=== PATIENT | female | born 1960 | race Caucasian/White ===

== ENCOUNTER 2016-12-04 14:57 | Day surgery (SDC) | payer OTHER ==
[~2016-12-04 14:57] MED LIST: GLIPIZIDE5 MG PO; GLUCOSAMINE-CH1 EA16 PO; METFORMIN HCL500 MG PO; ONGLYZA5 MG PO; QVAR7.3 GM IH; ULTRAM50 MG PO; VENTOLIN HFA18 GM IH; VITAMIN C1000 MG PO; VITAMIN D-1000 UNIT2 PO
[2016-12-04] MEDS ORDERED: TRADJENTA5 M1 PO (16:46)
[2016-12-04] MEDS ORDERED: VITAMIN D35000 UNI3 PO (16:46)
[2016-12-04 16:47] LABS: BASO % 0.1 % (0-2); HGB-HEMOGLOBIN 14.6 gm/dl (12.0-15.5); IMMATURE GRANULOCYTES ABSOLUTE 0.09 tho/cmm (0-0.03); IMMATURE GRANULOCYTES PERCENT 0.5 % (0-0.3); LYMPH % 7.3 % (20-45); LYMPH ABSOLUTE COUNT 1.4 tho/cmm (0.8-4.5); MCH (MEAN CORPUSCULAR HGB) 31.1 pg (28.0-32.0); MCHC MEAN CORPUSCULAR HGB CONC 34.8 % (32.0-36.0); MCV (MEAN CELL VOLUME) 89.4 fl (82.0-96.0); MEAN PLATELET VOLUME 9.7 cmc (9.4-12.4); MONO % 11.5 % (0-12); MONOCYTE ABSOLUTE COUNT 2.3 tho/cmm (0.0-1.2); NEUTROPHIL ABSOLUTE COUNT 15.8 tho/cmm (1.6-8.0); NEUTROPHIL-AUTOMATED 15.8 tho/cmm (1.6-8.0); NEUTROPHILS % 80.6 % (40-80); PLATELET COUNT 171 tho/cmm (150-450); RED CELL DISTRIBUTION WIDTH 13.2 % (12.4-16.4); WHITE BLOOD COUNT 19.6 tho/cmm (4.0-10.0)
[2016-12-04] MEDS ORDERED: FISH OIL 1,4001 EAC1 PO (16:47)
[2016-12-04] MEDS ORDERED: TRESIBA FL200 UNIT/1 SC (16:47)
[2016-12-04] MEDS ORDERED: VIIBRYD20 M1 PO (16:47)
[2016-12-04] MEDS ORDERED: CENTRUM SILVER1 EAC6 PO (16:47)
[2016-12-04] MEDS ORDERED: ROSUVASTATIN CA20 MG PO (16:48)
[2016-12-04] MEDS ORDERED: VENTOLIN HFA18 G2 INH (16:48)
[2016-12-04] MEDS ORDERED: QVAR8.7 G1 INH (16:48)
[2016-12-04 17:04] LABS: ALB/GLOB RATIO 0.6 (0.8-2.0); ALBUMIN 3.1 g/dl (3.5-5.0); ALKALINE PHOSPHATASE 72 U/L (33-138); ALT/SGPT 25 U/L (12-78); BILIRUBIN,TOTAL 0.7 mg/dl (0-1.5); BLOOD UREA NITROGEN 14 mg/dl (6-24); CALCIUM 8.6 mg/dl (8.5-10.5); CARBON DIOXIDE-VENOUS 25 mmol/L (22-32); CHLORIDE 98 mmol/l (96-110); CREATININE 0.68 mg/dl (0.50-1.10); GLUCOSE 207 mg/dL (70-110); LIPASE 68 U/L (73-393); SODIUM 133 mmol/L (135-145); eGFR VALUE FOR BLACK >90 mL/Min
[2016-12-04 17:05] LABS: ANION GAP 14 mmol/L (0-20); AST/SGOT 19 U/L (10-40)
[2016-12-04 18:47] LABS: URINE BILIRUBIN NEGATIVE (NEG); URINE BLOOD MODERATE (NEG); URINE GLUCOSE (UA) MODERATE (NEG); URINE KETONE MODERATE (NEG); URINE LEUKOCYTE ESTERASE POSITIVE (NEG); URINE NITRITE NEGATIVE (NEG); URINE PROTEIN MODERATE (NEG)
[2016-12-04 18:51] LABS: URINE APPEARANCE HAZY; URINE COLOR DARK YELLOW
[2016-12-04 18:53] LABS: URINE AMORPHOUS 1+; URINE BACTERIA 1+; URINE MUCUS 1+
[2016-12-04 18:54] LABS: URINE EPITHELIAL CELLS 0-3 /[HPF] (0-10); URINE WBC 15-30 /[HPF] (0-5)
[2016-12-05 06:26] LABS: BASO % 0.1 % (0-2); HCT-HEMATOCRIT 40.6 % (34.0-49.0); HGB-HEMOGLOBIN 13.6 gm/dl (12.0-15.5); IMMATURE GRANULOCYTES ABSOLUTE 0.04 tho/cmm (0-0.03); IMMATURE GRANULOCYTES PERCENT 0.2 % (0-0.3); LYMPH % 6.7 % (20-45); LYMPH ABSOLUTE COUNT 1.1 tho/cmm (0.8-4.5); MCH (MEAN CORPUSCULAR HGB) 30.3 pg (28.0-32.0); MCHC MEAN CORPUSCULAR HGB CONC 33.5 % (32.0-36.0); MCV (MEAN CELL VOLUME) 90.4 fl (82.0-96.0); MEAN PLATELET VOLUME 9.7 cmc (9.4-12.4); MONO % 4.1 % (0-12); MONOCYTE ABSOLUTE COUNT 0.7 tho/cmm (0.0-1.2); NEUTROPHIL ABSOLUTE COUNT 14.4 tho/cmm (1.6-8.0); NEUTROPHIL-AUTOMATED 14.4 tho/cmm (1.6-8.0); NEUTROPHILS % 88.9 % (40-80); PLATELET COUNT 163 tho/cmm (150-450); RED BLOOD COUNT 4.49 mil/cmm (4.00-5.20); RED CELL DISTRIBUTION WIDTH 13.2 % (12.4-16.4); WHITE BLOOD COUNT 16.2 tho/cmm (4.0-10.0)
[2016-12-05 06:30] LABS: ANION GAP 11 mmol/L (0-20); BLOOD UREA NITROGEN 14 mg/dl (6-24); CALCIUM 7.7 mg/dl (8.5-10.5); CARBON DIOXIDE-VENOUS 26 mmol/L (22-32); CHLORIDE 106 mmol/l (96-110); CREATININE 0.54 mg/dl (0.50-1.10); GLUCOSE 215 mg/dL (70-110); POTASSIUM 4.3 mmol/L (3.7-5.1); SODIUM 139 mmol/L (135-145); eGFR VALUE FOR BLACK >90 mL/Min
[2016-12-05] MEDS ORDERED: COLACE100 M1 PO (07:49)
[2016-12-05] MEDS ORDERED: FLOMAX0.4 M1 PO (07:49)
[2016-12-05] MEDS ORDERED: CIPRO500 M2 PO (07:49)
[2016-12-05] MEDS ORDERED: NORCO 5-325 TA1 EACH PO (07:50)
== END 2016-12-05 09:13 ==
LOC: EDMED 14:57 → SRG 20:24 → PACU 21:27 → CAR1 22:01
PROVIDERS: Nurse Practitioner Family; Urology
PROC: 0T778DZ Dilation of Left Ureter with Intraluminal Device, Via Natural or Artificial Opening Endoscopic (ICD-10-PCS; principal; 2016-12-04)
DX: N13.2 Hydronephrosis with renal and ureteral calculous obstruction (principal); N39.0 Urinary tract infection, site not specified; E78.00 Pure hypercholesterolemia, unspecified; E11.9 Type 2 diabetes mellitus without complications; J44.9 Chronic obstructive pulmonary disease, unspecified; J45.909 Unspecified asthma, uncomplicated; G47.30 Sleep apnea, unspecified; F17.210 Nicotine dependence, cigarettes, uncomplicated; Z79.4 Long term (current) use of insulin; Z79.51 Long term (current) use of inhaled steroids; Z79.899 Other long term (current) drug therapy; Z88.8 Allergy status to other drugs, medicaments and biological substances; Z90.710 Acquired absence of both cervix and uterus; Z90.89 Acquired absence of other organs; Z90.79 Acquired absence of other genital organ(s); Z90.721 Acquired absence of ovaries, unilateral; Z98.890 Other specified postprocedural states
CPT/HCPCS: C1769; C2617; J1815; J1956; J2060; J2405; J7030; Q9966; Q9967

== ENCOUNTER 2017-03-09 08:16 | Observation (INO) | payer OTHER ==
[~2017-03-09] VITALS: Ht 162.6 cm; Wt 74.7 kg
[~2017-03-09 08:16] MED LIST changes: +CENTRUM SILVER1 EAC6 PO; +CIPRO500 M2 PO; +COLACE100 M1 PO; +FISH OIL 1,4001 EAC1 PO; +FLOMAX0.4 M1 PO; +NORCO 5-325 TA1 EACH PO; +QVAR8.7 G1 INH; +ROSUVASTATIN CA20 MG PO; +TRADJENTA5 M1 PO; +TRESIBA FL200 UNIT/1 SC; +VENTOLIN HFA18 G2 INH; +VIIBRYD20 M1 PO; +VITAMIN D35000 UNI3 PO
[2017-03-09] MEDS ORDERED: AUGMENTIN 875-1 EAC2 PO (08:32)
[2017-03-09] MEDS ORDERED: MUCINEX600 M1 PO (08:32)
[2017-03-09] MEDS ORDERED: SUDAFED 24-HOU240 M1 PO (08:33)
[2017-03-09] MEDS ORDERED: ARTHRITIS PAIN650 M7 PO (08:40)
[2017-03-09] MEDS ORDERED: ALBUTEROL0.63 MG/1 INH (08:41)
[2017-03-09] MEDS ORDERED: TYLENOL PM EX-1 EAC4 PO (08:41)
[2017-03-09 09:12] LABS: BASO % 0.3 % (0-2); EOS % 0.3 % (0-7); HCT-HEMATOCRIT 45.1 % (34.0-49.0); HGB-HEMOGLOBIN 15.2 gm/dl (12.0-15.5); IMMATURE GRANULOCYTES ABSOLUTE 0.03 tho/cmm (0-0.03); IMMATURE GRANULOCYTES PERCENT 0.3 % (0-0.3); LYMPH % 15.9 % (20-45); LYMPH ABSOLUTE COUNT 1.8 tho/cmm (0.8-4.5); MCH (MEAN CORPUSCULAR HGB) 30.5 pg (28.0-32.0); MCHC MEAN CORPUSCULAR HGB CONC 33.7 % (32.0-36.0); MCV (MEAN CELL VOLUME) 90.6 fl (82.0-96.0); MEAN PLATELET VOLUME 9.6 cmc (9.4-12.4); MONO % 9.1 % (0-12); NEUTROPHIL ABSOLUTE COUNT 8.5 tho/cmm (1.6-8.0); NEUTROPHIL-AUTOMATED 8.5 tho/cmm (1.6-8.0); NEUTROPHILS % 74.1 % (40-80); PLATELET COUNT 184 tho/cmm (150-450); RED BLOOD COUNT 4.98 mil/cmm (4.00-5.20); RED CELL DISTRIBUTION WIDTH 13.4 % (12.4-16.4); WHITE BLOOD COUNT 11.5 tho/cmm (4.0-10.0)
[2017-03-09 09:19] LABS: PROTHROMBIN TIME 11.5 SECONDS (9.0-13.6)
[2017-03-09] MEDS ORDERED: IPRAT-ALBUT 0.5-3 ML INH (09:25)
[2017-03-09 09:30] LABS: ALB/GLOB RATIO 0.9 (0.8-2.0); ALBUMIN 3.5 g/dl (3.5-5.0); ALKALINE PHOSPHATASE 72 U/L (33-138); ALT/SGPT 22 U/L (12-78); ANION GAP 11 mmol/L (0-20); AST/SGOT 10 U/L (10-40); BILIRUBIN,TOTAL 0.3 mg/dl (0-1.5); BLOOD UREA NITROGEN 10 mg/dl (6-24); CALCIUM 8.3 mg/dl (8.5-10.5); CARBON DIOXIDE-VENOUS 25 mmol/L (22-32); CHLORIDE 106 mmol/l (96-110); CREATININE 0.75 mg/dl (0.50-1.10); GLUCOSE 228 mg/dL (70-110); POTASSIUM 3.9 mmol/L (3.7-5.1); SODIUM 138 mmol/L (135-145); eGFR VALUE FOR BLACK >90 mL/Min
[2017-03-09] MEDS ORDERED: NEURONTIN100 M1 PO (09:31)
[2017-03-09] MEDS ORDERED: DIFLUCAN150 M1 PO (09:32)
[2017-03-09] MEDS ORDERED: SF56 GM DT (09:33)
[2017-03-09] MEDS ORDERED: FLOMAX0.4 M1 PO (09:34)
[2017-03-09 12:01] LABS: URINE BILIRUBIN NEGATIVE (NEG); URINE BLOOD NEGATIVE (NEG); URINE GLUCOSE (UA) NEGATIVE (NEG); URINE KETONE NEGATIVE (NEG); URINE LEUKOCYTE ESTERASE NEGATIVE (NEG); URINE NITRITE NEGATIVE (NEG); URINE PROTEIN NEGATIVE (NEG)
[2017-03-09 12:04] LABS: URINE APPEARANCE CLEAR; URINE COLOR PALE YELLOW
[2017-03-10] MEDS ORDERED: LEVAQUIN750 M1 PO (11:41)
[2017-03-10] MEDS ORDERED: PREDNISONE10 M1 PO (11:43)
[2017-03-10] MEDS ORDERED: [UNRECOGNIZED DRUG - OTHER] PO (11:50)
== END 2017-03-10 12:20 ==
LOC: EDMED 08:16 → 5WF 10:31 → EMR2 10:31 → 5WF 12:15
PROVIDERS: Emergency Medicine; ADMIT Hospitalist
DX: J44.1 Chronic obstructive pulmonary disease with (acute) exacerbation (principal); E11.9 Type 2 diabetes mellitus without complications; Z23 Encounter for immunization; E78.5 Hyperlipidemia, unspecified; F17.210 Nicotine dependence, cigarettes, uncomplicated; Z90.710 Acquired absence of both cervix and uterus; Z90.79 Acquired absence of other genital organ(s); Z87.442 Personal history of urinary calculi; Z79.899 Other long term (current) drug therapy; Z79.4 Long term (current) use of insulin; Z98.890 Other specified postprocedural states
CPT/HCPCS: G0009; J1815; J1956; J2930; J3370; J7030